=== PATIENT | male | born 1950 | race Caucasian/White ===

== ENCOUNTER 2016-12-12 10:53 | Day surgery (SDC) | payer OTHER ==
[~2016-12-12] VITALS: Ht 172.7 cm; Wt 71.7 kg
[2016-12-12 11:38] VITALS: O2SAT 98
[2016-12-12] MEDS ORDERED: ONDANSETRON HCL 4 MG/2 ML VIAL IVP ONE (13:00)
[2016-12-12] MEDS ORDERED: ROCURONIUM BROMIDE 10 MG/ML (ZEMURON) IV ONE (13:00)
[2016-12-12] MEDS ORDERED: SEVOFLURANE 15 MIN GAS INH ONE (13:00)
[2016-12-12] MEDS ORDERED: BUPIVACAINE LIPOSOME/PF 266 MG/20 ML VIAL INFIL ONE (13:00)
[2016-12-12] MEDS ORDERED: LR 1,000 ML IV.SOLN IV ONE (13:00)
[2016-12-12] MEDS ORDERED: NS IRRIG SOLN 1000 ML IR ONE (13:00)
[2016-12-12] MEDS ORDERED: CEFAZOLIN 1 GM IVPB PREMIX 50 ML IV ONE (13:00)
[2016-12-12] MEDS ORDERED: PROPOFOL 200MG/ 20ML VIAL (DIPRIVAN) IV ONE (13:00)
[2016-12-12] MEDS ORDERED: MIDAZOLAM HCL 5 MG/5 ML VIAL IVP ONE (13:00)
[2016-12-12] MEDS ORDERED: fentaNYL CITRATE 250 MCG/5 ML AMP IV ONE (13:00)
[2016-12-12] MEDS ORDERED: LR 1,000 ML IV SCH (13:36)
[2016-12-12] MEDS ORDERED: MORPHINE 2 MG/ML INJ. SYRINGE IVP PRN ×3 (13:45)
[2016-12-12] MEDS ORDERED: METOCLOPRAMIDE HCL 10 MG/2 ML VIAL IVP PRN (13:45)
[2016-12-12] MEDS ORDERED: HYDROmorphone 1 MG INJ. 1 MG/ML AMPUL IVP PRN (14:15)
[2016-12-12] MEDS ORDERED: NACL 0.9% 1,000 ML IV SCH (14:15)
[2016-12-12] MEDS ORDERED: ONDANSETRON HCL 4 MG/2 ML VIAL IVP PRN (14:15)
[2016-12-12] MEDS ORDERED: ACETAMINOPHEN 325 MG TABLET PO PRN (14:15)
[2016-12-12 15:17] VITALS: BP 136/78; PULSE 74; RESP 16
== END 2016-12-12 15:50 | disposition home or self-care (01) ==
LOC: SDS 10:53 → SMU 10:55 → SDS 15:50
PROVIDERS: ATTEND Surgery
DX: K40.90 Unilateral inguinal hernia, without obstruction or gangrene, not specified as recurrent (principal); I10 Essential (primary) hypertension
CPT/HCPCS: 49650; C1727; C1781; C9290; J0690; J2405; J2704; J3010; J7120; J2250